=== PATIENT | female | born 1995 | race Caucasian/White ===

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

== ENCOUNTER 2017-04-13 10:42 | Emergency (ER) | payer OTHER ==
[~2017-04-13] VITALS: Ht 167.6 cm; Wt 61.4 kg
[~2017-04-13 10:42] MED LIST: ZOFR4TAB3 PO
[2017-04-13 10:43] VITALS: BP 114/75
--- NOTE | 2017-04-13 11:52 | REP ---
RIGHT HAND, FOUR VIEWS: HISTORY: Injury. There is no acute fracture or dislocation. The joint spaces are normal in appearance. IMPRESSION: There is no acute fracture or dislocation. Signed by Grzegorz Sharma MD 04/13/2017 11:54 A
== END 2017-04-13 11:32 | disposition home or self-care (01) ==
LOC: M ED 10:42
DX: S60.051A Contusion of right little finger without damage to nail, initial encounter (principal); W27.8XXA Contact with other nonpowered hand tool, initial encounter; Y92.099 Unspecified place in other non-institutional residence as the place of occurrence of the external cause; Y93.9 Activity, unspecified; Y99.9 Unspecified external cause status; Z91.040 Latex allergy status

== ENCOUNTER 2017-07-14 21:05 | Emergency (ER) | payer OTHER ==
[2017-07-14] MEDS: IBUPROFEN 600 MG TAB PO (23:15)
[2017-07-14 23:33] LABS: BASO % 0.5 % (0.0-1.0); EOS # 0.1 10^3/uL (0.0-0.50); EOS % 1.4 % (0.0-3.0); HEMATOCRIT 35.6 % (36.0-47.0); HEMOGLOBIN 12.6 g/dl (12.0-16.0); IMMATURE GRANULOCYTE % 0.1 % (0-0); LYMPH # 2.7 10^3/uL (1.5-6.5); LYMPH % 34.4 % (24.0-44.0); MEAN CORPUSCULAR HEMOGLOBIN 30.5 pg (27.0-33.0); MEAN CORPUSCULAR HGB CONC 35.4 g/dl (32.0-36.5); MEAN CORPUSCULAR VOLUME 86.2 fl (80.0-96.0); MONO # 0.5 10^3/uL (0.0-0.8); NEUTROPHILS # 4.6 10^3/uL (1.8-7.7); NEUTROPHILS % 57.6 % (36.0-66.0); PLATELET COUNT, AUTOMATED 303 10^3/uL (150-450); RED BLOOD COUNT 4.13 10^6/uL (4.00-5.40); RED CELL DISTRIBUTION WIDTH 11.2 % (11.5-14.5)
[2017-07-14 23:57] LABS: D-DIMER QUANT > 270.0 ng/ml (<500)
[2017-07-15 00:02] LABS: ANION GAP 5 MEQ/L (8-16); BLOOD UREA NITROGEN 12 MG/DL (7-18); CALCIUM LEVEL 9.1 MG/DL (8.5-10.1); CARBON DIOXIDE LEVEL 28 MEQ/L (21-32); CHLORIDE LEVEL 106 MEQ/L (98-107); CREATININE FOR GFR 0.56 MG/DL (0.55-1.02); GLUCOSE, FASTING 89 MG/DL (70-105); POTASSIUM SERUM 4.4 MEQ/L (3.5-5.1); SODIUM LEVEL 139 MEQ/L (136-145); TROPONIN I < 0.02 NG/ML (< 0.10)
== END 2017-07-15 00:24 | disposition home or self-care (01) ==
LOC: M ED 07-15 00:24
DX: M94.0 Chondrocostal junction syndrome [Tietze] (principal); Z91.040 Latex allergy status
CPT/HCPCS: 71046

== ENCOUNTER → 2017-11-27 | Outpatient (CLI) | payer OTHER ==
[~2017-11-27] MED LIST changes: +PROHANCE 279.3MG/ML 15ML VIAL (A9576) As Ordered; -ZOFR4TAB3 PO
== END ==
LOC: M RAD 15:04
DX: R51 Headache (principal); R42 Dizziness and giddiness; R55 Syncope and collapse; R11.0 Nausea
CPT/HCPCS: A9576

== ENCOUNTER 2018-04-18 14:51 | Emergency (ER) | payer OTHER ==
[2018-04-18] MEDS: IBUPROFEN 600 MG TAB PO (16:05)
== END 2018-04-18 16:07 | disposition home or self-care (01) ==
LOC: M ED 14:51
DX: N75.0 Cyst of Bartholin's gland (principal); Z91.040 Latex allergy status
CPT/HCPCS: 99282

== ENCOUNTER 2018-04-19 21:02 | Emergency (ER) | payer OTHER ==
[2018-04-19] MEDS: NORCO, ANEXSIA 5/325MG TABLET (HYDROcodone/ACETAMINOPHEN) PO (21:32)
[2018-04-19 21:47] LABS: BASO % 0.4 % (0.0-1.0); EOS # 0.1 10^3/uL (0.0-0.50); EOS % 1.1 % (0.0-3.0); HEMATOCRIT 39.1 % (36.0-47.0); HEMOGLOBIN 13.2 g/dl (12.0-15.5); IMMATURE GRANULOCYTE % 0.1 % (0-3.0); LYMPH # 2.8 10^3/uL (1.5-6.5); LYMPH % 37.8 % (24.0-44.0); MEAN CORPUSCULAR HEMOGLOBIN 29.9 pg (27.0-33.0); MEAN CORPUSCULAR HGB CONC 33.8 g/dl (32.0-36.5); MEAN CORPUSCULAR VOLUME 88.5 fl (80.0-96.0); MONO # 0.4 10^3/uL (0.0-0.8); MONO % 5.9 % (0.0-5.0); NEUTROPHILS % 54.7 % (36.0-66.0); PLATELET COUNT, AUTOMATED 353 10^3/uL (150-450); RED BLOOD COUNT 4.42 10^6/uL (4.00-5.40); WHITE BLOOD COUNT 7.3 10^3/uL (4.0-10.0)
[2018-04-19 21:51] LABS: KETONE, URINE AUTO RFX NEGATIVE (NEGATIVE); LEUKOCYTE ESTERASE UR AUTO RFX NEGATIVE (NEGATIVE); MUCUS, URINE RFX SMALL (NEGATIVE); NITRITE, URINE AUTO RFX NEGATIVE (NEGATIVE); RBC, URINE AUTO RFX 1 /HPF (0-3); SPECIFIC GRAVITY UR AUTO RFX 1.026 (1.002-1.035); SQUAM EPITHELIAL CELL UR AURFX 5 /HPF (0-6); WBC, URINE AUTO RFX 2 /HPF (0-3)
[2018-04-19 22:29] LABS: ANION GAP 5 MEQ/L (8-16); BLOOD UREA NITROGEN 10 MG/DL (7-18); CALCIUM LEVEL 8.9 MG/DL (8.5-10.1); CARBON DIOXIDE LEVEL 30 MEQ/L (21-32); CHLORIDE LEVEL 107 MEQ/L (98-107); CREATININE FOR GFR 0.74 MG/DL (0.55-1.30); GLOMERULAR FILTRATION RATE > 60.0 (>60); GLUCOSE, FASTING 79 MG/DL (70-100); SODIUM LEVEL 142 MEQ/L (136-145)
== END 2018-04-19 23:18 | disposition home or self-care (01) ==
LOC: M ED 21:02
DX: R10.2 Pelvic and perineal pain (principal); N75.0 Cyst of Bartholin's gland; Z91.040 Latex allergy status
CPT/HCPCS: 76856

== ENCOUNTER 2018-06-23 19:40 | Inpatient (IN) | payer OTHER ==
[2018-06-23 20:33] LABS: HEMATOCRIT 36.6 % (36.0-47.0); HEMOGLOBIN 12.8 g/dl (12.0-15.5); MEAN CORPUSCULAR HEMOGLOBIN 30.5 pg (27.0-33.0); MEAN CORPUSCULAR VOLUME 87.4 fl (80.0-96.0); PLATELET COUNT, AUTOMATED 337 10^3/uL (150-450); RED BLOOD COUNT 4.19 10^6/uL (4.00-5.40); WHITE BLOOD COUNT 6.7 10^3/uL (4.0-10.0)
[2018-06-23 20:58] LABS: CONTROL LINE HCG INT CTR LINE PRESENT; HCG, SERUM QUALITATIVE NEGATIVE (NEGATIVE)
[2018-06-23 21:01] LABS: AMPHETAMINES LEVEL URINE NEGATIVE (NEGATIVE); BARBITURATES URINE NEGATIVE (NEGATIVE); BENZODIAZEPINES URINE NEGATIVE (NEGATIVE); CANNABINOIDS URINE NEGATIVE (NEGATIVE); COCAINE METABOLITE URINE NEGATIVE (NEGATIVE); METHADONE URINE NEGATIVE (NEGATIVE); OPIATES URINE NEGATIVE (NEGATIVE); PHENCYCLIDINE URINE NEGATIVE (NEGATIVE)
[2018-06-23 21:04] LABS: ACETAMINOPHEN LEVEL < 2.0 UG/ML (10.0-30.0); ALBUMIN 4.4 GM/DL (3.2-5.2); ALBUMIN/GLOBULIN RATIO 1.76 (1.00-1.93); ALKALINE PHOSPHATASE 56 U/L (45-117); ALT/SGPT 16 U/L (12-78); ANION GAP 7 MEQ/L (8-16); AST/SGOT 9 U/L (7-37); BILIRUBIN,DIRECT 0.2 MG/DL (0.0-0.2); BILIRUBIN,TOTAL 0.9 MG/DL (0.2-1.0); BLOOD UREA NITROGEN 19 MG/DL (7-18); CARBON DIOXIDE LEVEL 27 MEQ/L (21-32); CHLORIDE LEVEL 109 MEQ/L (98-107); ETHYL ALCOHOL (ETHANOL) 0.004 % (0.000-0.010); GLOMERULAR FILTRATION RATE > 60.0 (>60); GLUCOSE, FASTING 103 MG/DL (70-100); POTASSIUM SERUM 3.5 MEQ/L (3.5-5.1); SALICYLATE LEVEL < 1.7 MG/DL (5.0-30.0); SODIUM LEVEL 143 MEQ/L (136-145); TOTAL PROTEIN 6.9 GM/DL (6.4-8.2)
[2018-06-23] MEDS ORDERED: MAALOX 30 ML SUSP *UDC PO (21:45)
[2018-06-23] MEDS ORDERED: LORazepam 1 MG TAB PO (21:45)
[2018-06-23] MEDS ORDERED: MOM 30ML SUSPENSION UDC PO (21:45)
[2018-06-25] MEDS: traZODone 50 MG TAB PO (23:05)
[2018-06-25] MEDS: ACETAMINOPHEN TAB 650MG DOSE (2X325MG) PO (23:06)
== END 2018-06-26 10:20 | disposition home or self-care (01) | DRG 882 ==
LOC: M PSY 06-24 00:10 → M ED 19:40 → M ED INP 21:31
DX: F43.20 Adjustment disorder, unspecified (principal); Z68.1 Body mass index [BMI] 19.9 or less, adult; Z91.040 Latex allergy status

== ENCOUNTER 2018-08-26 20:06 | Emergency (ER) | payer OTHER ==
[~2018-08-26] VITALS: Ht 170.2 cm; Wt 51.4 kg
[~2018-08-26 20:06] MED LIST changes: +HYDR50TA70 PO; +IBUP-1022 PO; +IBUP-1114 PO; +MELO15TA28 PO; -PROHANCE 279.3MG/ML 15ML VIAL (A9576) As Ordered; +TRAM50TA2 PO; +TRAZO50TA PO; +ZANA2CAP PO; +ZOFR4TAB14 PO
[2018-08-26] MEDS ORDERED: LEXA1TAB PO (20:16)
[2018-08-26] MEDS ORDERED: LUNE2TAB23 PO (20:16)
[2018-08-26 21:23] LABS: HEMATOCRIT 36.9 % (36.0-47.0); HEMOGLOBIN 12.6 g/dl (12.0-15.5); MEAN CORPUSCULAR HEMOGLOBIN 29.9 pg (27.0-33.0); MEAN CORPUSCULAR HGB CONC 34.1 g/dl (32.0-36.5); MEAN CORPUSCULAR VOLUME 87.6 fl (80.0-96.0); PLATELET COUNT, AUTOMATED 302 10^3/uL (150-450); RED BLOOD COUNT 4.21 10^6/uL (4.00-5.40); WHITE BLOOD COUNT 6.2 10^3/uL (4.0-10.0)
[2018-08-26 21:48] LABS: AMPHETAMINES LEVEL URINE NEGATIVE (NEGATIVE); BARBITURATES URINE NEGATIVE (NEGATIVE); BENZODIAZEPINES URINE NEGATIVE (NEGATIVE); CANNABINOIDS URINE NEGATIVE (NEGATIVE); COCAINE METABOLITE URINE NEGATIVE (NEGATIVE); METHADONE URINE NEGATIVE (NEGATIVE); OPIATES URINE NEGATIVE (NEGATIVE); PHENCYCLIDINE URINE NEGATIVE (NEGATIVE)
[2018-08-26 21:56] LABS: HCG, SERUM QUALITATIVE NEGATIVE (NEGATIVE)
[2018-08-26 22:01] LABS: ACETAMINOPHEN LEVEL < 2.0 UG/ML (10.0-30.0); ALBUMIN 4.6 GM/DL (3.2-5.2); ALT/SGPT 16 U/L (12-78); BILIRUBIN,DIRECT 0.2 MG/DL (0.0-0.2); BILIRUBIN,TOTAL 0.6 MG/DL (0.2-1.0); BLOOD UREA NITROGEN 13 MG/DL (7-18); CALCIUM LEVEL 9.1 MG/DL (8.5-10.1); CARBON DIOXIDE LEVEL 30 MEQ/L (21-32); CHLORIDE LEVEL 104 MEQ/L (98-107); CREATININE FOR GFR 0.85 MG/DL (0.55-1.30); ETHYL ALCOHOL (ETHANOL) 0.003 % (0.000-0.010); GLOMERULAR FILTRATION RATE > 60.0 (>60); GLUCOSE, FASTING 80 MG/DL (70-100); POTASSIUM SERUM 3.6 MEQ/L (3.5-5.1); SALICYLATE LEVEL < 1.7 MG/DL (5.0-30.0); SODIUM LEVEL 142 MEQ/L (136-145); TOTAL PROTEIN 6.8 GM/DL (6.4-8.2)
[2018-08-26 23:37] VITALS: BP 110/65
== END 2018-08-26 23:45 | disposition home or self-care (01) ==
LOC: M ED 20:06
DX: F32.9 Major depressive disorder, single episode, unspecified (principal); F41.9 Anxiety disorder, unspecified; Z91.5 Personal history of self-harm; Z91.040 Latex allergy status; Z79.899 Other long term (current) drug therapy
CPT/HCPCS: 36415; 80048; 80076; 80307; 84443; 84703; 85027; 99285; G0480

== ENCOUNTER 2019-03-13 19:51 | Emergency (ER) | payer OTHER ==
[~2019-03-13] VITALS: Ht 170.2 cm; Wt 54.5 kg
[~2019-03-13 19:51] MED LIST changes: +LEXA1TAB PO; +LUNE2TAB23 PO; +TRAZ1TAB10 PO; -TRAZO50TA PO
[2019-03-13 21:44] LABS: APPEARANCE, URINE CLEAR (CLEAR); BACTERIA, URINE AUTO NEGATIVE (NEGATIVE); BILIRUBIN, URINE AUTO NEGATIVE (NEGATIVE); BLOOD, URINE BLOOD NEGATIVE (NEGATIVE); COLOR, URINE YELLOW (YELLOW); GLUCOSE, URINE (UA) AUTO NEGATIVE (NEGATIVE); KETONE, URINE AUTO NEGATIVE (NEGATIVE); LEUKOCYTE ESTERASE, URINE AUTO NEGATIVE (NEGATIVE); NITRITE, URINE AUTO NEGATIVE (NEGATIVE); PROTEIN, URINE AUTO NEGATIVE (NEGATIVE); RBC, URINE AUTO 2 /HPF (0-3); SPECIFIC GRAVITY URINE AUTO 1.015 (1.002-1.035); SQUAMOUS EPITHELIAL CELL UR AU 1 /HPF (0-6); WBC, URINE AUTO 1 /HPF (0-3)
[2019-03-13] MEDS ORDERED: FLAG500T PO (23:29)
[2019-03-13 23:33] VITALS: BP 116/71
== END 2019-03-13 23:39 | disposition home or self-care (01) ==
LOC: M ED 19:51
DX: N76.0 Acute vaginitis (principal); F41.9 Anxiety disorder, unspecified; Z79.899 Other long term (current) drug therapy; Z91.040 Latex allergy status; Z91.048 Other nonmedicinal substance allergy status

== ENCOUNTER 2019-07-07 18:25 | Emergency (ER) | payer OTHER ==
[~2019-07-07] VITALS: Ht 170.2 cm; Wt 59.1 kg
[~2019-07-07 18:25] MED LIST changes: +FLAG500T PO
[2019-07-07 18:26] VITALS: BP 124/81
[2019-07-07] MEDS ORDERED: ERYT1OIN26 OP (18:35)
[2019-07-07] MEDS ORDERED: TETRACAINE 0.5% OPHTH SOLN 4ML OS ONE (19:00)
[2019-07-07] MEDS ORDERED: CIPR0.3S OS (19:07)
[2019-07-07] MEDS ORDERED: CIPROFLOXACIN 0.3% OPHTH SOLN 2.5ML OS ONE (19:15)
== END 2019-07-07 19:15 | disposition home or self-care (01) ==
LOC: M ED 18:25
DX: H00.014 Hordeolum externum left upper eyelid (principal); Z91.040 Latex allergy status

== ENCOUNTER 2020-01-03 13:36 | Emergency (ER) | payer OTHER ==
[~2020-01-03] VITALS: Ht 170.2 cm; Wt 58.1 kg
[~2020-01-03 13:36] MED LIST changes: +CIPR0.3S6 OS; +ERYT5OIN25 OP
[2020-01-03 14:43] LABS: BASO % 0.5 % (0.0-1.0); EOS % 0.5 % (0.0-3.0); HEMATOCRIT 36.7 % (36.0-47.0); HEMOGLOBIN 12.9 g/dl (12.0-15.5); LYMPH # 1.9 10^3/uL (1.5-5.0); LYMPH % 32.2 % (24.0-44.0); MEAN CORPUSCULAR HGB CONC 35.1 g/dl (32.0-36.5); MEAN CORPUSCULAR VOLUME 88.2 fl (80.0-96.0); MONO # 0.4 10^3/uL (0.0-0.8); MONO % 6.1 % (0.0-5.0); NEUTROPHILS # 3.6 10^3/uL (1.5-8.5); NEUTROPHILS % 60.5 % (36.0-66.0); PLATELET COUNT, AUTOMATED 298 10^3/uL (150-450); RED BLOOD COUNT 4.16 10^6/uL (4.00-5.40); WHITE BLOOD COUNT 5.9 10^3/uL (4.0-10.0)
[2020-01-03] MEDS ORDERED: ISOVUE-370 76% 100ML VIAL As Ordered ONE (14:46)
[2020-01-03 15:13] LABS: ALBUMIN 4.5 GM/DL (3.2-5.2); ALT/SGPT 14 U/L (12-78); BILIRUBIN,TOTAL 0.7 MG/DL (0.2-1.0); BLOOD UREA NITROGEN 14 MG/DL (7-18); CALCIUM LEVEL 9.3 MG/DL (8.5-10.1); CARBON DIOXIDE LEVEL 27 MEQ/L (21-32); CHLORIDE LEVEL 108 MEQ/L (98-107); CREATININE FOR GFR 0.86 MG/DL (0.55-1.30); GLOMERULAR FILTRATION RATE > 60.0 (>60); GLUCOSE, FASTING 117 MG/DL (70-100); POTASSIUM SERUM 3.2 MEQ/L (3.5-5.1); SODIUM LEVEL 141 MEQ/L (136-145); TOTAL PROTEIN 6.8 GM/DL (6.4-8.2)
[2020-01-03 15:15] LABS: HCG, SERUM QUALITATIVE NEGATIVE (NEGATIVE)
[2020-01-03 15:17] VITALS: BP 122/73
[2020-01-03 15:24] LABS: HEPATITIS B SURFACE ANTIBODY NEGATIVE (POSITIVE)
[2020-01-03 15:35] LABS: HEPATITIS B SURFACE ANTIGEN NEGATIVE (NEGATIVE)
[2020-01-03] MEDS ORDERED: LORazepam 2 MG/ML VIAL IV STA (15:35)
[2020-01-03] MEDS ORDERED: NS 1,000 ML IV ONE (16:00)
[2020-01-03 16:03] LABS: HEPATITIS C VIRUS ABY INDEX 0.2 INDEX (<0.8)
[2020-01-03 16:04] LABS: HIV 1&2 SCREEN CENTAUR NEGATIVE (NEGATIVE)
[2020-01-03 17:11] LABS: APPEARANCE, URINE CLEAR (CLEAR); BACTERIA, URINE AUTO NEGATIVE (NEGATIVE); BILIRUBIN, URINE AUTO NEGATIVE (NEGATIVE); BLOOD, URINE BLOOD 2+ (NEGATIVE); COLOR, URINE STRAW (YELLOW); GLUCOSE, URINE (UA) AUTO NEGATIVE (NEGATIVE); KETONE, URINE AUTO NEGATIVE (NEGATIVE); LEUKOCYTE ESTERASE, URINE AUTO NEGATIVE (NEGATIVE); MUCUS, URINE SMALL (NEGATIVE); NITRITE, URINE AUTO NEGATIVE (NEGATIVE); PROTEIN, URINE AUTO NEGATIVE (NEGATIVE); RBC, URINE AUTO 18 /HPF (0-3); SPECIFIC GRAVITY URINE AUTO 1.056 (1.002-1.035); SQUAMOUS EPITHELIAL CELL UR AU 0 /HPF (0-6); UROBILINOGEN, URINE AUTO 0.2 mg/dL (0.0-2.0); WBC, URINE AUTO 0 /HPF (0-3)
[2020-01-03 17:14] LABS: CHLAMYDIA DNA AMPLIFICATION NEGATIVE (NEGATIVE); GC DNA AMPLIFICATION NEGATIVE (NEGATIVE)
[2020-01-03] MEDS ORDERED: LORazepam 1 MG TAB PO STA (17:18)
--- NOTE | 2020-01-03 23:46 | REP ---
CT ABDOMEN AND PELVIS WITH IV CONTRAST: TECHNIQUE: Axial contrast-enhanced images from the lung bases to the pubic symphysis using 100 mL Isovue-370 intravenous contrast material with multiplanar reformations. Visualized lung bases are clear. Liver, spleen, adrenals, pancreas, and kidneys are unremarkable in appearance. There is no hydronephrosis. There is no abdominal aortic aneurysm. There is decreased distance between the abdominal aorta and superior mesenteric artery, approximately 5 mm. There is also somewhat decreased angle between the proximal superior mesenteric artery and abdominal aorta approximately 13-14 degrees. 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 The appendix is normal. I see no bowel wall thickening. I see no evidence of pelvic mass or free fluid. The urinary bladder is not well distended and not well evaluated. IMPRESSION: No evidence of appendicitis. No free air or free fluid. No bowel wall inflammation. 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 There may be some degree of compression of the transverse portion of the duodenum and left renal vein. Electronically Signed by Lucien Soto MD 01/05/2020 03:53 P
--- NOTE | 2020-01-04 05:09 | REP ---
PELVIC SONOGRAPHY: HISTORY: Vaginal bleeding. Comparison is made with today's CT study. FINDINGS: Transabdominal and transvaginal scanning are performed. Uterine dimensions are normal, measured at 6.4 x 3.5 x 5.0 cm. Endometrial echo 0.6 cm thick and centrally placed. A normal left ovary is seen with dimensions of 2.4 x 2.0 x 2.2 cm. Right ovary measures 2.9 x 1.5 x 2.5 cm. It contains a 1.5 cm hypoechoic cyst. This is consistent with a follicle. Visualized bladder rai are smooth. IMPRESSION: No significant abnormality. Electronically Signed by Weston East MD 01/04/2020 11:16 A
[2020-01-06 12:07] LABS: HSV-1 DNA Negative (Negative); HSV-2 DNA Negative (Negative)
--- NOTE | 2020-01-07 11:35 | ED PDOC ---
Post-Departure Follow-Up ct abd/p faxed to [facility] for [facility] Andreia Del Angel MD Jan 07, 2020 11:35
== END 2020-01-03 17:31 | disposition home or self-care (01) ==
LOC: M ED 13:36
DX: S20.219A Contusion of unspecified front wall of thorax, initial encounter (principal); S40.022A Contusion of left upper arm, initial encounter; T76.21XA Adult sexual abuse, suspected, initial encounter; T76.11XA Adult physical abuse, suspected, initial encounter; Z91.040 Latex allergy status; Y92.9 Unspecified place or not applicable; Y93.9 Activity, unspecified; Y99.9 Unspecified external cause status
CPT/HCPCS: 74177; 76830; 76856; 80047; 80053; 81001; 84702; 84703; 85025; 86706; 86780; 86803; 87210; 87340; 87389; 87529; 87661; 93976; 96361; 96374; 99284; J2060; Q9967

== ENCOUNTER → 2020-01-10 | Outpatient (CLI) | payer OTHER ==
[~2020-01-10] MED LIST changes: +CIPR0.3S OS; -CIPR0.3S6 OS
--- NOTE | 2020-01-10 10:07 | REP ---
Clinical: Acute abdominal pain. Technique: Upright view of the chest with supine and upright views of the abdomen and pelvis. Findings: Frontal upright view of the chest demonstrates no acute cardiopulmonary process or free air below the diaphragm to suspect pneumoperitoneum. Supine and upright views of the abdomen and pelvis demonstrate nonspecific bowel gas pattern without obstruction or perforation. No organomegaly. No abnormal calcifications. Skeletal structures normal for age. Impression: Nonspecific bowel gas pattern. Electronically Signed by Car Santos MD 01/10/2020 09:58 A
== END ==
LOC: M RAD 08:56
PROVIDERS: ATTEND Registered Nurse Maternal Newborn
DX: R10.9 Unspecified abdominal pain (principal)

== ENCOUNTER 2020-06-04 11:56 | Emergency (ER) | payer OTHER ==
[~2020-06-04] VITALS: Ht 170.2 cm; Wt 54.5 kg
[~2020-06-04 11:56] MED LIST changes: -CIPR0.3S OS; +CIPR0.3S6 OS
[2020-06-04] MEDS ORDERED: PROAAER10 INH (12:05)
[2020-06-04] MEDS ORDERED: NORE0.353 (12:05)
[2020-06-04 12:25] LABS: HEMATOCRIT 37.7 % (36.0-47.0); HEMOGLOBIN 12.6 g/dl (12.0-15.5); MEAN CORPUSCULAR HEMOGLOBIN 29.7 pg (27.0-33.0); MEAN CORPUSCULAR HGB CONC 33.4 g/dl (32.0-36.5); MEAN CORPUSCULAR VOLUME 88.9 fl (80.0-96.0); PLATELET COUNT, AUTOMATED 294 10^3/uL (150-450); RED BLOOD COUNT 4.24 10^6/uL (4.00-5.40); WHITE BLOOD COUNT 8.4 10^3/uL (4.0-10.0)
[2020-06-04 12:54] LABS: HCG, SERUM QUALITATIVE NEGATIVE (NEGATIVE)
[2020-06-04 13:01] LABS: ALBUMIN 4.4 GM/DL (3.2-5.2); ALT/SGPT 12 U/L (12-78); BILIRUBIN,DIRECT 0.2 MG/DL (0.0-0.2); BILIRUBIN,TOTAL 1.1 MG/DL (0.2-1.0); BLOOD UREA NITROGEN 12 MG/DL (7-18); CARBON DIOXIDE LEVEL 29 MEQ/L (21-32); CHLORIDE LEVEL 107 MEQ/L (98-107); ETHYL ALCOHOL (ETHANOL) < 0.003 % (0.000-0.010); GLOMERULAR FILTRATION RATE > 60.0 (>60); GLUCOSE, FASTING 93 MG/DL (70-100); POTASSIUM SERUM 4.2 MEQ/L (3.5-5.1); SODIUM LEVEL 140 MEQ/L (136-145); TOTAL PROTEIN 6.5 GM/DL (6.4-8.2)
[2020-06-04 13:02] LABS: ACETAMINOPHEN LEVEL < 2.0 UG/ML (10.0-30.0); SALICYLATE LEVEL < 1.7 MG/DL (5.0-30.0)
[2020-06-04] MEDS ORDERED: LIDOCAINE 2% 5ML JELLY UROJET TOP ONE (14:00)
[2020-06-04 14:48] LABS: AMPHETAMINES LEVEL URINE NEGATIVE (NEGATIVE); BARBITURATES URINE NEGATIVE (NEGATIVE); BENZODIAZEPINES URINE NEGATIVE (NEGATIVE); CANNABINOIDS URINE NEGATIVE (NEGATIVE); COCAINE METABOLITE URINE NEGATIVE (NEGATIVE); METHADONE URINE NEGATIVE (NEGATIVE); OPIATES URINE NEGATIVE (NEGATIVE); PHENCYCLIDINE URINE NEGATIVE (NEGATIVE)
[2020-06-04] MEDS ORDERED: ENTER DRUG NAME HERE (PATIENT'S OWN MED) PO SCH (19:30)
--- NOTE | 2020-06-04 20:07 | ECGEPIP ---
[facility] - ED Test Date: 2020-06-04 Pat Name: NASIM BLANKENSHIP Department: Room: - Gender: Female [employer]: : 1995 Requested By: JORDAN SALEH Order Number: [id number] Reading MD: Andreia Mcintyre Measurements Intervals [place] Rate: 80 P: 40 PA: 104 QRS: 88 QRSD: 72 T: 58 QT: 344 QTc: 398 Interpretive Statements SINUS RHYTHM WITH SHORT PA INTERVAL NONSPECIFIC ST T [facility]ES 06/24/[address] [facility] Electronically Signed on 06-04-2020 20:07:09 EST by Andreia Mcintyre
[2020-06-04] MEDS ORDERED: NORA0.35 PO (20:42)
[2020-06-04] MEDS ORDERED: NORETHINDRONE PO SCH (21:00)
[2020-06-05 01:42] VITALS: BP 117/65
== END 2020-06-05 01:48 ==
LOC: M ED 11:56
DX: R45.851 Suicidal ideations (principal); S71.131A Puncture wound without foreign body, right thigh, initial encounter; X78.8XXA Intentional self-harm by other sharp object, initial encounter; Y92.9 Unspecified place or not applicable; Y93.9 Activity, unspecified; F33.9 Major depressive disorder, recurrent, unspecified; F43.0 Acute stress reaction; Z20.828 Contact with and (suspected) exposure to other viral communicable diseases; J45.909 Unspecified asthma, uncomplicated; Z91.040 Latex allergy status; Z79.899 Other long term (current) drug therapy
CPT/HCPCS: 36415; 80048; 80076; 80307; 84443; 84703; 85027; 93005; 99285; G0480; U0002

== ENCOUNTER 2020-08-07 16:47 | Emergency (ER) | payer OTHER ==
[~2020-08-07] VITALS: Ht 170.2 cm; Wt 57.6 kg
[2020-08-07 16:47] VITALS: BP 118/67
[~2020-08-07 16:47] MED LIST changes: +NORA0.35 PO; +NORE0.353; +PROAAER10 INH
[2020-08-07] MEDS ORDERED: ABIL20TA5 PO (17:05)
--- NOTE | 2020-08-07 17:30 | REP ---
INDICATION: trauma. COMPARISON: None. TECHNIQUE: Four views. FINDINGS: Four views of the left hand demonstrate overall normal mineralization. No fracture or subluxation is seen. Joint spaces are preserved.. . No opaque foreign body noted. IMPRESSION: Negative left hand series. <Electronically signed by Ronak East > 08/07/20 [id number]
== END 2020-08-07 19:41 | disposition home or self-care (01) ==
LOC: M ED 16:47
DX: S67.191A Crushing injury of left index finger, initial encounter (principal); S67.02XA Crushing injury of left thumb, initial encounter; W23.0XXA Caught, crushed, jammed, or pinched between moving objects, initial encounter; Y92.014 Private driveway to single-family (private) house as the place of occurrence of the external cause; Y93.9 Activity, unspecified; Y99.9 Unspecified external cause status; J45.909 Unspecified asthma, uncomplicated; Z91.040 Latex allergy status; Z79.51 Long term (current) use of inhaled steroids

== ENCOUNTER 2021-09-07 21:21 | Inpatient (IN) | payer OTHER ==
[~2021-09-07] VITALS: Ht 170.2 cm; Wt 60.3 kg
[~2021-09-07 21:21] MED LIST changes: +ABIL20TA5 PO
[2021-09-07 22:45] LABS: HEMATOCRIT 39.5 % (36.0-47.0); HEMOGLOBIN 13.2 g/dl (12.0-15.5); MEAN CORPUSCULAR HEMOGLOBIN 28.2 pg (27.0-33.0); MEAN CORPUSCULAR HGB CONC 33.4 g/dl (32.0-36.5); MEAN CORPUSCULAR VOLUME 84.4 fl (80.0-96.0); PLATELET COUNT, AUTOMATED 285 10^3/uL (150-450); RED BLOOD COUNT 4.68 10^6/uL (4.00-5.40); WHITE BLOOD COUNT 8.1 10^3/uL (4.0-10.0)
[2021-09-07 23:12] LABS: AMPHETAMINES LEVEL URINE NEGATIVE (NEGATIVE); BARBITURATES URINE NEGATIVE (NEGATIVE); BENZODIAZEPINES URINE NEGATIVE (NEGATIVE); CANNABINOIDS URINE NEGATIVE (NEGATIVE); COCAINE METABOLITE URINE NEGATIVE (NEGATIVE); METHADONE URINE NEGATIVE (NEGATIVE); OPIATES URINE NEGATIVE (NEGATIVE); PHENCYCLIDINE URINE NEGATIVE (NEGATIVE)
[2021-09-07 23:14] LABS: RSV AMPLIFICATION NEGATIVE (NEGATIVE)
[2021-09-07 23:22] LABS: ACETAMINOPHEN LEVEL < 2.0 UG/ML (10.0-30.0); ALBUMIN 4.1 GM/DL (3.2-5.2); ALT/SGPT 15 U/L (12-78); BILIRUBIN,DIRECT 0.3 MG/DL (0.0-0.2); BILIRUBIN,TOTAL 0.9 MG/DL (0.2-1.0); BLOOD UREA NITROGEN 9 MG/DL (7-18); CALCIUM LEVEL 8.9 MG/DL (8.5-10.1); CARBON DIOXIDE LEVEL 27 MEQ/L (21-32); CHLORIDE LEVEL 108 MEQ/L (98-107); CREATININE FOR GFR 0.89 MG/DL (0.55-1.30); ETHYL ALCOHOL (ETHANOL) < 0.003 % (0.000-0.010); GLOMERULAR FILTRATION RATE > 60.0 (>60); GLUCOSE, FASTING 92 MG/DL (70-100); SALICYLATE LEVEL < 1.7 MG/DL (5.0-30.0); SODIUM LEVEL 141 MEQ/L (136-145); TOTAL PROTEIN 6.2 GM/DL (6.4-8.2)
[2021-09-07 23:28] LABS: HCG, SERUM QUALITATIVE NEGATIVE (NEGATIVE)
[2021-09-07] MEDS ORDERED: TEST200I14 IM (23:49)
[2021-09-08] MEDS ORDERED: HOME MED LIST COMPLETE! XX SCH
[2021-09-08 00:20] LABS: VENOUS BASE EXCESS 1.3 (-2.0-2.0); VENOUS HCO3 27.1 MEQ/L (23.0-27.0); VENOUS O2 SATURATION 77.1 % (60.0-80.0); VENOUS PARTIAL PRESSURE CO2 47.7 mmHg (38.0-50.0); VENOUS PARTIAL PRESSURE O2 43.3 mmHg (30.0-50.0); VENOUS PH 7.373 UNITS (7.330-7.430); VENOUS STANDARD HCO3 25.1 MEQ/L; VENOUS TOTAL CO2 28.6 MEQ/L (24.0-28.0)
[2021-09-08] MEDS ORDERED: MOM 30ML SUSPENSION UDC PO PRN (02:35)
[2021-09-08] MEDS ORDERED: MAALOX 30 ML SUSP *UDC PO PRN (02:35)
[2021-09-08 05:29] VITALS: BP 112/79
[2021-09-08] MEDS: SERTRALINE HCL 50 MG TAB PO SCH (08:23)
[2021-09-08 18:46] VITALS: BP 136/78
[2021-09-09 06:23] VITALS: BP 133/68
[2021-09-09] MEDS: SERTRALINE HCL 50 MG TAB PO SCH (08:28)
[2021-09-09] MEDS ORDERED: TESTOSTERONE CYP IM SCH (09:30)
[2021-09-09] MEDS: TESTOSTERONE CYP IM SCH (13:14)
[2021-09-09] MEDS: ACETAMINOPHEN TAB 650MG DOSE (2X325MG) PO PRN ×2 (17:42→20:38)
[2021-09-09 18:22] VITALS: BP 138/80
[2021-09-10 06:17] VITALS: BP 128/75
[2021-09-10] MEDS: SERTRALINE HCL 50 MG TAB PO SCH (08:07)
[2021-09-10 16:42] VITALS: BP 115/64
[2021-09-10] MEDS: traZODone 50 MG TAB PO PRN (22:19)
[2021-09-11 06:10] VITALS: BP 132/63
[2021-09-11] MEDS: SERTRALINE HCL 50 MG TAB PO SCH (08:41)
[2021-09-11] MEDS: hydrOXYzine 50 MG TAB PO SCH ×2 (12:06→18:00)
[2021-09-11 15:55] VITALS: BP 124/76
[2021-09-11] MEDS ORDERED: hydrOXYzine 50 MG TAB PO PRN (18:25)
[2021-09-11] MEDS: ACETAMINOPHEN TAB 650MG DOSE (2X325MG) PO PRN (20:23)
[2021-09-12 06:05] VITALS: BP 110/56
[2021-09-12] MEDS: SERTRALINE HCL 25 MG TABLET PO SCH (08:46)
[2021-09-12 16:19] VITALS: BP 115/63
[2021-09-12] MEDS: traZODone 50 MG TAB PO PRN (21:55)
[2021-09-12] MEDS: hydrOXYzine 25 MG TAB PO PRN (21:56)
[2021-09-13 06:33] VITALS: BP 117/59
[2021-09-13] MEDS: SERTRALINE HCL 25 MG TABLET PO SCH (09:13)
[2021-09-13] MEDS: hydrOXYzine 25 MG TAB PO PRN (21:57)
[2021-09-13] MEDS: traZODone 50 MG TAB PO PRN (21:57)
[2021-09-14 06:12] VITALS: BP 102/56
[2021-09-14] MEDS: SERTRALINE HCL 25 MG TABLET PO SCH (08:42)
[2021-09-14] MEDS: hydrOXYzine 25 MG TAB PO PRN ×3 (08:42→23:04)
[2021-09-14 17:43] VITALS: BP 118/62
[2021-09-14] MEDS: traZODone 50 MG TAB PO PRN (23:04)
[2021-09-15 06:07] VITALS: BP 107/53
[2021-09-15] MEDS: SERTRALINE HCL 25 MG TABLET PO SCH (08:16)
[2021-09-15 16:20] VITALS: BP 111/62
[2021-09-15] MEDS: traZODone 50 MG TAB PO PRN (23:00)
[2021-09-15] MEDS: hydrOXYzine 25 MG TAB PO PRN (23:00)
[2021-09-15] MEDS: ACETAMINOPHEN TAB 650MG DOSE (2X325MG) PO PRN (23:01)
[2021-09-16 06:36] VITALS: BP 95/54
[2021-09-16] MEDS: SERTRALINE HCL 25 MG TABLET PO SCH (07:58)
[2021-09-16] MEDS: TESTOSTERONE CYP IM SCH (11:44)
[2021-09-16] MEDS: hydrOXYzine 25 MG TAB PO PRN ×2 (16:00→23:02)
[2021-09-16 16:09] VITALS: BP 117/60
[2021-09-16] MEDS: traZODone 50 MG TAB PO PRN (23:02)
[2021-09-17 07:01] VITALS: BP 121/62
[2021-09-17] MEDS: SERTRALINE HCL 25 MG TABLET PO SCH (08:39)
[2021-09-17] MEDS: hydrOXYzine 25 MG TAB PO PRN ×2 (15:18→21:07)
[2021-09-17 18:19] VITALS: BP 130/78
[2021-09-18 06:50] VITALS: BP 94/52
[2021-09-18] MEDS: SERTRALINE HCL 25 MG TABLET PO SCH (09:36)
[2021-09-18 17:48] VITALS: BP 123/62
[2021-09-18] MEDS: hydrOXYzine 25 MG TAB PO PRN (22:28)
[2021-09-19 07:21] VITALS: BP 121/71
[2021-09-19] MEDS: SERTRALINE HCL 25 MG TABLET PO SCH (08:17)
[2021-09-19 18:46] VITALS: BP 129/58
[2021-09-19] MEDS: hydrOXYzine 25 MG TAB PO PRN (23:05)
[2021-09-20 06:28] VITALS: BP 102/55
[2021-09-20] MEDS ORDERED: SERTRALINE HCL 50 MG TAB PO SCH (09:00)
[2021-09-20 18:02] VITALS: BP 117/64
[2021-09-20] MEDS: hydrOXYzine 25 MG TAB PO PRN (22:24)
[2021-09-21 06:23] VITALS: BP 101/59
[2021-09-21] MEDS ORDERED: HYDR-3363 PO (07:32)
[2021-09-21] MEDS ORDERED: SERT25TA21 PO (07:32)
[2021-09-21] MEDS ORDERED: SERTRALINE HCL 25 MG TABLET PO SCH (09:00)
== END 2021-09-21 12:20 | disposition home or self-care (01) | DRG 882 ==
LOC: EDSEX → M ED 21:21 → M ED INP 09-08 02:33 → M PSY 09-08 05:22
PROVIDERS: ADMIT Psychiatry & Neurology Psychiatry; ATTEND Psychiatry & Neurology Psychiatry
DX: F43.25 Adjustment disorder with mixed disturbance of emotions and conduct (principal); R45.851 Suicidal ideations; F60.7 Dependent personality disorder; F60.3 Borderline personality disorder; F64.9 Gender identity disorder, unspecified; Z91.51 Personal history of suicidal behavior; Z20.822 Contact with and (suspected) exposure to COVID-19; Z79.890 Hormone replacement therapy; Z91.040 Latex allergy status; Z62.810 Personal history of physical and sexual abuse in childhood; Z63.0 Problems in relationship with spouse or partner; Z91.52 Personal history of nonsuicidal self-harm; S90.32XA Contusion of left foot, initial encounter; W22.8XXA Striking against or struck by other objects, initial encounter; Y93.84 Activity, sleeping

== ENCOUNTER 2021-09-22 13:39 | Emergency (ER) | payer OTHER ==
[~2021-09-22 13:39] MED LIST changes: +HYDR-3363 PO; +SERT25TA21 PO; +TEST200I14 IM
[2021-09-22 16:23] VITALS: BP 116/74
== END 2021-09-22 16:26 | disposition home or self-care (01) ==
LOC: M ED 13:39 → EDSEX 13:39 → M ED 16:26
DX: F32.A Depression, unspecified (principal); Z63.0 Problems in relationship with spouse or partner; J45.909 Unspecified asthma, uncomplicated; F41.8 Other specified anxiety disorders; Z91.040 Latex allergy status; Z79.899 Other long term (current) drug therapy

== ENCOUNTER → 2023-12-15 | Outpatient (CLI) | payer BC ==
[~2023-12-15] MED LIST changes: +CIPR0.3S37 OS; -CIPR0.3S6 OS; -LUNE2TAB23 PO; +LUNE2TAB28 PO
[2023-12-15 13:05] LABS: BASO % 0.7 % (0.0-1.0); EOS # 0.1 10^3/uL (0.0-0.5); EOS % 0.9 % (0.0-3.0); HEMOGLOBIN 12.4 g/dl (12.0-15.5); LYMPH # 1.8 10^3/uL (1.5-5.0); LYMPH % 32.2 % (24.0-44.0); MEAN CORPUSCULAR HEMOGLOBIN 31.2 pg (27.0-33.0); MEAN CORPUSCULAR HGB CONC 34.4 g/dl (32.0-36.5); MEAN CORPUSCULAR VOLUME 90.7 fl (80.0-96.0); MONO # 0.4 10^3/uL (0.0-0.8); MONO % 7.4 % (2.0-8.0); NEUTROPHILS # 3.3 10^3/uL (1.5-8.5); NEUTROPHILS % 58.6 % (36.0-66.0); PLATELET COUNT, AUTOMATED 281 10^3/uL (150-450); RED BLOOD COUNT 3.97 10^6/uL (4.00-5.40); WHITE BLOOD COUNT 5.7 10^3/uL (4.0-10.0)
[2023-12-15 13:33] LABS: FOLLICLE STIMULATING HORMONE 3.4 mIU/ML; LUTEINIZING HORMONE 1.4 mIU/ML
[2023-12-15 13:34] LABS: ALBUMIN 4.2 G/DL (3.2-5.2); ALKALINE PHOSPHATASE 45 U/L (46-116); ALT/SGPT 13 U/L (7.0-40); AST/SGOT < 8 U/L (<34); BILIRUBIN,TOTAL 0.8 MG/DL (0.3-1.2); BLOOD UREA NITROGEN 10 MG/DL (9-23); CALCIUM LEVEL 9.2 MG/DL (8.5-10.1); CARBON DIOXIDE LEVEL 30 MMOL/L (20-31); CHLORIDE LEVEL 109 MMOL/L (98-107); CREATININE FOR GFR 0.75 MG/DL (0.55-1.30); GLOMERULAR FILTRATION RATE > 60.0 (>60); GLUCOSE, FASTING 87 MG/DL (60-100); POTASSIUM SERUM 3.9 MMOL/L (3.5-5.1); SODIUM LEVEL 140 MMOL/L (136-145); TOTAL PROTEIN 6.1 G/DL (5.7-8.2)
[2023-12-15 13:35] LABS: ESTRADIOL 93.7 PG/ML
[2023-12-16 19:07] LABS: TESTOSTERONE FREE (DIRECT) 8.8 pg/mL (0.0-4.2)
== END ==
LOC: M PLALAB 09:32
PROVIDERS: ATTEND Registered Nurse
DX: F64.0 Transsexualism (principal)